=== PATIENT | male | born 1955 | race Caucasian/White ===

== ENCOUNTER 2019-05-22 00:49 | Day surgery (SDC) | payer OTHER, SELFPAY ==
[2019-04-19 14:38] VITALS: BP 144/84; PULSE 57; RESP 18; TEMP 36.9; O2SAT 98
[2019-05-22] VITALS (10 sets, daily range): BP systolic 101–121; BP diastolic 52–73; PULSE 54–60; RESP 14–19; TEMP 36.2–36.5; O2SAT 94–100; BMI 29.2; BMI 30.1
--- NOTE | ~2019-05-22 | XR_ITS ---
EXAMINATION: KNEE ONE/TWO VIEW-RIGHT DATE: 05/22/2019 12:17 INDICATION: Postoperative evaluation following left knee knee medial unicompartmental arthroplasty TECHNIQUE: Anteroposterior and lateral views of the left knee were obtained. COMPARISON: 04/05/2019 FINDINGS: Left knee medial unicompartmental arthroplasty appears well seated and in near anatomic alignment. N o fractures identified. Small marginal osteophytes along the patella. Expected small amount of postop erative subcutaneous and intra-articular gas. IMPRESSION: 1. Left knee medial unicompartmental arthroplasty, negative for postoperative purposes. Reviewed, dictated and finalized at location A. WRAPPER IMPRESSION: 1. Left knee medial unicompartmental arthroplasty, negative for postoperative p urposes.
[2019-05-22] MEDS: LACTATED RINGERS 1,000 ML 30 ML IV CONT ×2 (09:15→11:55)
--- NOTE | 2019-05-22 09:38 | WPDHPUPDATE1 ---
History and Physical Update Update Date/Time: 05/22/19 09:38 History and Physical has been reviewed, including an updated exam of the patient. There are NO changes in the patient's condition. Risks, benefits, and alternatives have been discussed and questions answered. Patient agrees to proceed with procedure.
--- NOTE | 2019-05-22 09:55 | P.PNAN_ITS ---
Anes - Initial Pre Proc Eval Procedure: Operation Date: 05/22/19 10:30 Proposed Procedures p Left Partial Knee Replacement - Siddhartha Dennis MD Date/Time: 05/22/19 09:55 Surgeon: Siddhartha Dennis MD Pre Op Diagnosis: Left Knee OA Patient Data Age: 64 Gender: M Height: 6 ft 2 in Weight: 103.5 kg Last Vital Signs Temp 36.2 C L 05/22/19 08:45 Pulse 58 L 05/22/19 08:45 Resp 19 05/22/19 08:45 BP 121/73 05/22/19 08:45 Pulse Ox 100 05/22/19 08:45 Allergies Allergy/AdvReac Type Severity Reaction Status Date / Time No Known Allergies Allergy Verified 04/19/19 14:03 Home Medications Medication Instructions Recorded Confirmed Type fluticasone propionate [Flonase 1 spray INTRANASAL PRN PRN 04/19/19 05/17/19 History Allergy Relief] xylitol [Xylimelts] 1 mg MUCOUS MEMBRANE HS 04/19/19 05/17/19 History Patient hx anesthesia problems: none Family hx anesthesia problems: none [facility] Past Medical History Medical History (Updated 05/22/19 @ 09:56 by Alberto Witt MD) Osteoarthritis Surgical History Surgical History Osteoarthritis of left knee Social History Social History Smoking status: Former smoker Smoking end date: 04/04/18 Alcohol intake: never Anes - Eval Final PreProcedure Day of Procedure 05/22/19 09:55 Patient weight: overweight Heart: regular rate and rhythm Lungs: clear to auscultation Airway: Mallampati scale class 1 Neurological: alert and oriented Last oral intake: >/= 8 hours ASA classification: II Emergent: no Anesthetic plan: proceed Anesthesia type and monitoring: general LMA and standard monitoring Informed Consent: The patient's anesthetic plan and its attendant risks and benefits were discussed with the patient/family/POA. Questions were solicited and answers provided to the satisfaction of the patient/family/POA.
[2019-05-22] MEDS: ceFAZolin 2 GM/D5W 50 ML 2 GM/50 ML BAG IVPB (10:03)
[2019-05-22] MEDS: GENTAMICIN BONE CEMENT REFOBACIN 1 EACH TOPICAL (11:31)
--- NOTE | 2019-05-22 12:33 | P.OP_ITS ---
Procedure Note - Detailed Date of procedure: 05/22/19 Pre-op diagnosis: Left Knee OA Post-op diagnosis: same Procedure performed: Partial knee arthroplasty, medial compartment. Implants: [employer] PKR X3 system tibial insert size 6, 9 mm thickness, femoral component size 5. Tibial base tibial base plate size 6. Anesthesia: GETA and regional (subsartorial block.) Surgeon: Siddhartha Dennis MD Estimated blood loss (mL): 50 Drains: No Complications: None Condition: stable Disposition: PACU Findings: The -1 cutting block was used on the distal femur. 4 mm resection of the tibia. ACL intact. The patellofemoral and lateral compartments were normal. Operative details: The patient was given a general anesthetic. Preoperative antibiotics were given. The knee was prepped and draped in the usual sterile fashion. A longitudinal incision was created along the medial aspect of the patellar tendon. A minimally invasive optimized mid vastus approach was completed. No medial release was taken. The external alignment guide was used to cut the tibia with anatomic posterior slope. A 4 millimeter resection was taken. The spacer block technique was utilized to measure flexion and extension gaps after the osteophytes were removed. The difference was used to calculate the distal resection. The distal cutting block was utilized to cut the distal femur. The AP and chamfer block was utilized for this last cuts. The femur and tibia were sized. Range of motion and gap balancing was assessed. This was tested with the 1.5 millimeter spacer. The bony surfaces were cleaned with lavaged. Lug holes were drilled. The real components were cemented into position. Excess cement was carefully removed. The tourniquet was released. Meticulous hemostasis was maintained. The wound was closed with interrupted 1 Vicryl suture followed by a running 0 Quill suture and 2-0 Quill suture. Steri- Strips are placed in the skin the patient was extubated and brought to recovery room in stable condition. There were no complications.
--- NOTE | 2019-05-22 12:45 | SUR.PHASEI ---
1230; ATTEMPTED TO UPDATE FAMILY. THEY ARE EATING LUNCH.
--- NOTE | 2019-05-22 13:24 | ADMGEN ---
This patient, Adryan Edge, was admitted to [facility] Surg Room 328-01. Patient/family oriented to hospital policies and general routines including ID bracelet, bed and alarms, visiting hours, pain management, procedures, bathroom and other care routines, personal items, smoking policy, room service/diet, and visiting hours. Valuables list has been completed. Information on how to activate the Rapid Response Team has been discussed. Patient/Family are encouraged to report perceived risks to care and to ask questions if they do not understand what they are told or what they should do.
[2019-05-22] MEDS: KETOROLAC 15 MG/ML VIAL (*BKC) IV PUSH ×2 (15:04→20:23)
--- NOTE | 2019-05-22 15:28 | PHAR ---
The patient's home med of Xylitol [Xylimelts] 550 MG has been verified.
[2019-05-22] MEDS: DOCUSATE SODIUM 100 MG CAPSULE PO (17:34)
[2019-05-22] MEDS: ASPIRIN 81 MG ENTERIC TABLET PO (17:34)
[2019-05-23 02:00] VITALS: BP 105/53; PULSE 52; RESP 16; TEMP 36.6; O2SAT 97
[2019-05-23] MEDS: KETOROLAC 15 MG/ML VIAL (*BKC) IV PUSH ×2 (02:43→09:45)
[2019-05-23 05:58] VITALS: BP 116/68; PULSE 50; RESP 18; TEMP 36.7; O2SAT 97
--- NOTE | 2019-05-23 07:45 | WPDANESPN ---
Anes - Prog Note Post-Op Date/Time: 05/23/19 07:45 Cardiovascular status: normal Respiratory status: normal Airway patency: baseline Mental status: baseline Post-Op hydration status: normal Vital Signs: Last Vital Signs Temp 36.7 C 05/23/19 05:58 Pulse 50 L 05/23/19 05:58 Resp 18 05/23/19 05:58 BP 116/68 05/23/19 05:58 Pulse Ox 97 05/23/19 05:58 I/O: Intake & Output 05/22/19 05/22/19 05/23/19 15:59 23:59 07:59 Intake Total 350 390 250 Output Total 650 650 Balance 350 -260 -400 05/22/19 13:30 Blood Type O Positive Antibody Screen Negative Post-procedural complaints: none Patient Feedback: Patient satisfied with anesthetic care.
[2019-05-23] MEDS: DOCUSATE SODIUM 100 MG CAPSULE PO (09:46)
[2019-05-23] MEDS: ASPIRIN 81 MG ENTERIC TABLET PO (09:46)
[2019-05-23] MEDS: ACETAMINOPHEN 500 MG TABLET 1000 MG PO (11:58)
--- NOTE | 2019-05-23 12:50 | PC.NURSE ---
Pt's cell: [phone], 's cell (Mily) [phone]
--- NOTE | 2019-05-23 16:34 | PM.DS ---
DS: Diagnosis Admitting Diagnosis Admitting Diagnosis: Unilateral primary osteoarthritis, left knee Discharge Diagnosis (1) Osteoarthritis of left knee: Qualifiers: Osteoarthritis type: primary Qualified Code(s): M17.12 - Unilateral primary osteoarthritis, left knee Code(s): M17.12 - Unilateral primary osteoarthritis, left knee Status: Acute DS: Summary Hospital Course Reason for hospitalization: Partial knee arthroplasty, medial compartment. Hospital Course: Tolerated surgery well. Progressed appropriately with therapy. Status at Discharge Functional status at discharge: uses cane/walker Time Spent with Patient Time attestation: Total time spent providing and/or coordinating discharge services: Exam Const: General: no acute distress Resp: Effort & Inspection: normal respiratory effort Skin: Other: Wound healing well. Mepilex dressing intact. No hematoma or drainage. Neuro: Motor exam (neuro): 5/5 motor strength present throughout Sensory Exam: normal sensation Psych: Mental Status: mental status grossly normal Speech and movement: Normal speech and movement present Discharge Plan Discharge Attending physician on discharge: Siddhartha Dennis Discharging Clinician: Siddhartha Dennis Patient Disposition: Home, Self-Care Activity: may shower Diet: regular Discharge Instructions: See instruction sheet. Patient Instructions: Antibiotic Form, Pain Management (DC), Knee Replacement (DC) Stand Alone Forms: General Discharge Information Follow-up/Referrals: Siddhartha Dennis MD [Physician] - Discharge Medications: New oxycodone-acetaminophen 5-325 mg tablet 1 - 2 tablet PO Q4-6H MDD 8 tablets PRN (Reason: pain) Qty: 40 RF: 0 Continued fluticasone propionate [Flonase Allergy Relief] 50 mcg/actuation [place],Suspension 1 spray INTRANASAL PRN PRN (Reason: Allergy Symptoms) RF: 0 Xylimelts 550 mg Muco-Adhesive Buccal Tablet 1 mg MUCOUS MEMBRANE HS RF: 0 Date of admission: 05/22/19 13:14 Admitting Provider: Siddhartha Dennis Interventions: Discharge Disposition Last Done: 05/23/19 14:45 Discharge Date/Time: 05/23/19 14:45 Attending physician on admission: Siddhartha Dennis Quality VTE Prophylaxis VTE prophylaxis: mechanical ordered (MASON hose and SCDs)
== END 2019-05-23 14:45 | disposition home or self-care (01) ==
LOC: ANHSURGERY 08:28 → ANH3MEDSUR 18:42
PROVIDERS: Visit Provider Orthopaedic Surgery
PROC: (CPT 27446; principal; 2019-05-22 10:30)
DX: M17.12 Unilateral primary osteoarthritis, left knee (principal); Z87.891 Personal history of nicotine dependence
CPT/HCPCS: 27446; 36415; 73560; 86850; 86900; 86901; 97110; 97116; 97161; 97165; A9270; C1713; C1776; J0131; J0171; J0690; J1100; J1885; J2250; J2270; J2405; J2704; J2795; J3010; J7120